=== PATIENT | male | born 1945 ===

== ENCOUNTER → 2016-11-03 | Outpatient (CLI) | payer MEDICARE, BC ==
--- NOTE | 2016-11-11 13:09 | Diagnostic Imaging Report ---
Indication: COUGH Technique: Two views of the chest Comparison: none Findings: Lungs and pleural spaces are clear. Heart size is normal. There are degenerative changes of the thoracic spine Impression: Negative This agrees with the preliminary interpretation provided overnight by Dr. Collado
== END | disposition home or self-care (01) ==
LOC: RAD 15:05
DX: Z01.818 Encounter for other preprocedural examination (principal); R05 Cough
CPT/HCPCS: 71020